=== PATIENT | female | born 1985 | race Caucasian/White ===

== ENCOUNTER 2024-11-14 11:45 | Outpatient (CLI) | payer OTHER, SELFPAY ==
--- NOTE | ~2024-11-14 | MM_ITS ---
EXAMINATION: MM screening shawna BI w cheryl HISTORY: Screening TECHNIQUE: Craniocaudal and mediolateral oblique 3-D tomosynthesis images were obtained and synthetic 2-D images were generated. CAD analysis was submitted and interpreted. COMPARISON: No prior mammogram is available for comparison at this institution. BREAST PARENCHYMAL COMPOSITION: Not dense: There are scattered areas of fibroglandular density. FINDINGS: There is no evidence of suspicious mass, calcification, or architectural distortion to sugg est malignancy in either breast. There has been no suspicious interval change. IMPRESSION: 1. No mammographic evidence of malignancy. 2. Recommend routine screening mammography in one year. BI-RADS Category 1: Negative Reviewed, dictated and finalized at location B.
--- OUTSIDE RECORDS SUMMARY | 2024-11-14 11:51 | XMS_ITS ---
Author Organization [facility] Address [address] [place] [address] Care Team Providers Care Data Management Engineer Name Role Phone AlessioEsperanza Primary Care Provider UnavailMasha Lujan Unavailable [phone] Doug Liao [phone] REASON FOR VISIT SCIT - Traditional Schedule Allergy Immunotherapy (Week ) Medications Medication SIG (Take, Route, Frequency, Duration) Notes Start Date End Date Status Multivitamin Active SIT (Traditional) variable - see record per schedule subcutaneous per schedule for 999 09/02/2024 Active Probiotic Active Vitamin K2 Not-Ramirezin g Fish Oil Active Triamcinolone Acetonide 0.1 % 1 application Externally Twice a day for 30 days Active Auvi-Q 0.3 MG/0.3ML as directed Injectio n once Active Magnesium Glycinate Active ZyrTEC 10 MG 1 tablet Orally Once a day Active Vitamin D3 125 MCG (5000 UT) 1 capsule Orally Once a day for 30 days Active Montelukast Sodium 10 MG 1 tablet Orally Once a day for 30 days Active Famotidine 20 MG 1 tablet Orally Once a day for 30 days Active Nasal Washes N/A as directed intranasally Active Fluticasone Propionate 50 MCG/ACT 2 sprays in each nostril Nasally once a day for 30 days As needed Active Xyzal Allergy 24HR 5 MG 1 tablet in the evening Orally Once a day Active Encounters Encounter Location Date Provider Diagnosis [facility] [address] [place] [address] 11/11/2024 Doug Liao Allergic rhinitis due to pollen J30.1 ; Other allergic rhinitis J30.89 ; Allergic rhinitis due to animal (cat) (dog) hair and dander J30.81 and Other chronic allergic conjunctivitis H10.45 Assessments Encounter Date Diagnosis (ICD Code) Assessment Notes Treatment Notes Treatment Clinical Notes Section Notes 11/11/2024 Allergic rhinitis due to pollen (ICD-10 - J30.1) 11/11/2024 Other allergic rhinitis (ICD-10 - J30.89) 11/11/2024 Allergic rhinitis due to animal (cat) (dog) hair and dander (ICD-10 - J30.81) 11/11/2024 Other chronic allergic conjunctivitis (ICD-10 - H10.45) Plan Of Treatment Next Appt Details Follow Up: As scheduled, Vira son: Provider Name:Doug Brandon Keshawn , 11/18/2024 09:50:00 AM, [address] [place] [address], [phone], Progress Notes * Sowmya WHITTINGTON RDOB:[birth year] (39 yo F)Acc No.[id number]:11/11/2024 SCIT-Aeroallergen Patient: Sowmya SAUCEDO Provider: Mj Liao MD :1985 A ge:39 Y S ex:Female Date:11/11/2024 Address:[address] [place], [place] [id number] Pcp:Esperanza Mccallum Subjective: * Chief Complaints: * S CIT - Traditional Schedule Allergy Immunotherapy (Week ) * HPI: * Introduction: The patient is here for scheduled immunotherapy. Please see the attached specialty form regarding the specifics of the administration of these vaccines. As per our protocol, they must undergo a screening health questionnaire (medication changes, reaction(s) to last immunotherapy dose(s), current health status, ACT (if appropriate), self-injectable epinephrine on patient(?) and peak flow (if appropriate)). Also, the patient must wait in our office for 30 minutes after receiving the vaccine(s). Furthermore, every patient must have an epinephrine pen (self-injectable) with them at the time of administration--and carry if for the following 1.5 hours after they leave our office. The patient must also have taken their antihistamine the day of the injection, preferably 2 hours prior. The consent form for SCIT (subcutaneous immunotherapy) is on file. * Medical History: * Surgical History: * Hospitalization/Major Diagno stic Procedure: * Medications: T akingXyzal Allergy 24HR 5 MG Tablet 1 tablet in the evening Orally Once a day Fluticasone Propionate 50 MCG/ACT Suspension 2 sprays in each nostril Nasally once a day As neededNasal Washes N/A 1 quart of sterilized tap water or distilled water, 1 tsp NaCl, 1 pinch of baking soda as directed intranasally Famotidine 20 MG Tablet 1 tablet Orally Once a day Montelukast Sodium 10 MG Tablet 1 tablet Orally Once a day Triamcinolone Acetonide 0.1 % Ointment 1 application Externally Twice a day Auvi-Q 0.3 MG/0.3ML Solution Auto-injector as directed Injection once Vitamin D3 125 MCG (5000 UT) Capsule 1 capsule Orally Once a day ZyrTEC 10 MG Tablet Chewable 1 tablet Orally Once a day Magnesium Glycinate Fish Oil Probiotic Multivitamin SIT (Traditional) variable - see record variable - see record per schedule subcutaneous per schedule Taking Xyzal Allergy 24HR 5 MG Tablet 1 tablet in the evening Orally Once a day Taking Fluticasone Propionate 50 MCG/ACT Suspension 2 sprays in each nostril Nasally once a day As neededTaking Nasal Washes N/A 1 quart of sterilized tap water or distilled water, 1 tsp NaCl, 1 pinch of baking soda as directed intranasally Taking Famotidine 20 MG Tablet 1 tablet Orally Once a day Taking Montelukast Sodium 10 MG Tablet 1 tablet Orally Once a day Taking Triamcinolone Acetonide 0.1 % Ointment 1 application Externally Twice a day Taking Auvi-Q 0.3 MG/0.3ML Solution Auto-injector as directed Injection once Taking Vitamin D3 125 MCG (5000 UT) Capsule 1 capsule Orally Once a day Taking ZyrTEC 10 MG Tablet Chewable 1 tablet Orally Once a day Taking Magnesium Glycinate Taking Fish Oil Taking Probiotic Taking Multivitamin Taking SIT (Traditional) variable - see record variable - see record per schedule subcutaneous per schedule Not-Taking/PRNVitamin K2 Not-Taking/PRN Vitamin K2 Objective: * Vitals: Assessment: * Assessment: 1. A llergic rhinitis due to pollen - J30.1 (Primary) 2 . O ther allergic rhinitis - J30.89 3 . A llergic rhinitis due to animal (cat) (dog) hair and dander - J30.81 4 . O ther chronic allergic conjunctivitis - H10.45 Plan: * Treatment: * Procedure Codes: 9 5117 IMMUNOTHERAPY INJECTIONS * Preventive Medicine: Counseling: E xercise A void heavy lifting on days of allergy immunotherapy. M edication instruction: I njectable epinephrine education and instruction w/ discussion of signs and symptoms of anaphylaxis and reasons to seek urgent or emergent care, Watch for side effects of prescribed medications. E ducation: A ble to return demonstration of self-injectable epinephrine. * Follow Up: A s scheduled * Billing Information: * Visit Code: * Procedure Codes: 69755 IMMUNOTHERAPY INJECTIONS. * Sign off status: Completed true * Provider: Mj Liao MD Date: 0 11/11/2024 Generated for Dayana hernandez/Albin/Kelseaitting on: 0 11/14/2024 11:51 AM CDT History and Physical Notes * HPI (History of Present Illness) Category Sub-Category Detail Notes Category Not es *Introduction The patient is here for scheduled immunotherapy. Please see the attached specialty form regarding the specifics of the administration of these vaccines. As per our protocol, they must undergo a screening health questionnaire (medication changes, reaction(s) to last immunotherapy dose(s), current health status, ACT (if appropriate), self-injectable epinephrine on patient(?) and peak flow (if appropriate)). Also, the patient must wait in our office for 30 minutes after receiving the vaccine(s). Furthermore, every patient must have an epinephrine pen (self-injectable) with them at the time of administration--and carry if for the following 1.5 hours after they leave our office. The patient must also have taken their antihistamine the day of the injection, preferably 2 hours prior. The consent form for SCIT (subcutaneous immunotherapy) is on file.
--- OUTSIDE RECORDS SUMMARY | 2024-11-14 11:51 | XMS_ITS ---
Author Organization [facility] Address [address] [place] [address] Care Team Providers Care Wreath And Garland Maker Name Role Phone AlessioEsperanza Primary Care Provider UnavailMasha Lujan Unavailable [phone] Doug Liao [phone] REASON FOR VISIT SCIT - Traditional Schedule Allergy Immunotherapy (Week ) Medications Medication SIG (Take, Route, Frequency, Duration) Notes Start Date End Date Status Probiotic Active Vitamin K2 Not-Caleb sanchez SIT (Traditional) variable - see record per schedule subcutaneous per schedule for 999 09/02/2024 Active Multivitamin Active Fish Oil Active Triamcinolone Acetonide 0.1 % 1 application Externally Twice a day for 30 days Active Vitamin D3 125 MCG (5000 UT) 1 capsule Orally Once a day for 30 days Active Auvi-Q 0.3 MG/0.3ML as directed Injectio n once Active Magnesium Glycinate Active ZyrTEC 10 MG 1 tablet Orally Once a day Active Fluticasone Propionate 50 MCG/ACT 2 sprays in each nostril Nasally once a day for 30 days As needed Active Famotidine 20 MG 1 tablet Orally Once a day for 30 days Active Nasal Washes N/A as directed intranasally Active Montelukast Sodium 10 MG 1 tablet Orally Once a day for 30 days Active Xyzal Allergy 24HR 5 MG 1 tablet in the evening Orally Once a day Active Encounters Encounter Location Date Provider Diagnosis [facility] [address] [place] [address] 11/04/2024 Doug Liao Allergic rhinitis due to pollen J30.1 ; Other allergic rhinitis J30.89 ; Allergic rhinitis due to animal (cat) (dog) hair and dander J30.81 and Other chronic allergic conjunctivitis H10.45 Assessments Encounter Date Diagnosis (ICD Code) Assessment Notes Treatment Notes Treatment Clinical Notes Section Notes 11/04/2024 Allergic rhinitis due to pollen (ICD-10 - J30.1) 11/04/2024 Other allergic rhinitis (ICD-10 - J30.89) 11/04/2024 Allergic rhinitis due to animal (cat) (dog) hair and dander (ICD-10 - J30.81) 11/04/2024 Other chronic allergic conjunctivitis (ICD-10 - H10.45) Plan Of Treatment Next Appt Details Follow Up: As scheduled, Vira son: Provider Name:Doug Brandon Keshawn , 11/18/2024 09:50:00 AM, [address] [place] [address], [phone], Progress Notes * Sowmya WHITTINGTON RDOB:[birth year] (39 yo F)Acc No.[id number]:11/04/2024 SCIT-Aeroallergen Patient: Sowmya SAUCEDO Provider: Mj Liao MD :1985 A ge:39 Y S ex:Female Date:11/04/2024 Address:[address] [place], [place] [id number] Pcp:Esperanza Mccallum Subjective: * Chief Complaints: * [...] Information: * Visit Code: * Procedure Codes: 12474 IMMUNOTHERAPY INJECTIONS. * Sign off status: Completed true * Provider: Mj Liao MD Date: 0 11/04/2024 Generated for Dayana hernandez/Albin/Kelseaitting on: 0 11/14/2024 [...]
--- OUTSIDE RECORDS SUMMARY | 2024-11-14 11:51 | XMS_ITS ---
Author Organization [facility] Address [address] [place] [address] Care Team Providers Care Strainer Tender Name Role Phone AlessioEsperanza Primary Care Provider UnavailMasha Lujan Unavailable [phone] Doug Liao [phone] REASON FOR VISIT SCIT - Traditional Schedule Allergy Immunotherapy (Week ) Medications Medication SIG (Take, Route, Frequency, Duration) Notes Start Date End Date Status Fish Oil Active Vitamin K2 Not-Takin g Multivitamin Active Probiotic Active SIT (Traditional) variable - see record per schedule subcutaneous per schedule for 999 09/02/2024 Active Auvi-Q 0.3 MG/0.3ML as directed Injectio n once Active Triamcinolone Acetonide 0.1 % 1 application Externally Twice a day for 30 days Active ZyrTEC 10 MG 1 tablet Orally Once a day Active Vitamin D3 125 MCG (5000 UT) 1 capsule Orally Once a day for 30 days Active Magnesium Glycinate Active Fluticasone Propionate 50 MCG/ACT 2 sprays in each nostril Nasally once a day for 30 days As needed Active Xyzal Allergy 24HR 5 MG 1 tablet in the evening Orally Once a day Active Nasal Washes N/A as directed intranasally Active Montelukast Sodium 10 MG 1 tablet Orally Once a day for 30 days Active Famotidine 20 MG 1 tablet Orally Once a day for 30 days Active Encounters Encounter Location Date Provider Diagnosis [facility] [address] [place] [address] 2024 Doug Liao Allergic rhinitis due to pollen J30.1 ; Other allergic rhinitis J30.89 ; Allergic rhinitis due to animal (cat) (dog) hair and dander J30.81 and Other chronic allergic conjunctivitis H10.45 Assessments Encounter Date Diagnosis (ICD Code) Assessment Notes Treatment Notes Treatment Clinical Notes Section Notes 2024 Allergic rhinitis due to pollen (ICD-10 - J30.1) 2024 Other allergic rhinitis (ICD-10 - J30.89) 2024 Allergic rhinitis due to animal (cat) (dog) hair and dander (ICD-10 - J30.81) 2024 Other chronic allergic conjunctivitis (ICD-10 - H10.45) Plan Of Treatment Next Appt Details Follow Up: As scheduled, Vira son: Provider Name:Doug KendellJennifer Liao , 11/18/2024 09:50:00 AM, [address] [place] [address], [phone], Progress Notes * Sowmya WHITTINGTON RDOB:[birth year] (39 yo F)Acc No.[id number]:2024 SCIT-Aeroallergen Patient: Sowmya SAUCEDO Provider: Mj Liao MD :1985 A ge:39 Y S ex:Female Date:2024 Address:[address] [place], [place] [id number] Pcp:Esperanza Mccallum Subjective: * Chief Complaints: * [...] Information: * Visit Code: * Procedure Codes: 32040 IMMUNOTHERAPY INJECTIONS. * Sign off status: Completed true * Provider: Mj Liao MD Date: 0 2024 Generated for Dayana hernandez/Albin/Kelseaitting on: 0 11/14/2024 11:50 AM CDT History and Physical Notes * [...]
--- OUTSIDE RECORDS SUMMARY | 2024-11-14 11:51 | XMS_ITS | Clinical Summary ---
Author Organization [facility] Address [address] [place] [address] Phone Care Team Providers Care Bench Lay Out Technician Name Role Phone Unavailable Primary Care Provider Unavailabl e Social History Tobacco Use Types Packs/Day Years Used Date Smoking Tobacco: Never Assessed Comments Unknown Sex and Gender Information Value Date Recorded Sex Assigned at Not on file Legal Sex Female 3:56 PM CDT Gender Identity Not on file Sexual Orientation Not on file Plan of Treatment Health Maintenance Due Date Last Done Comments DTAP/TDAP/TD VACCINES (1 - Tdap) 10/29/2003 HEPATITIS B VACCINES (1 of 3 - 19+ 3-dose series) 10/29/2003 HPV/Cotest (21-29) 2005 PAP SMEAR 2005 CERVICAL CANCER SCREENING 2014 HPV/Cotest (30-65) 2014 PAP SMEAR 2014 INFLUENZA VACCINE (#1) 2024 BREAST CANCER SCREENING 2024 HPV VACCINES Aged Out No longer eligi ble based on patient's age to complete this topic
--- OUTSIDE RECORDS SUMMARY | 2024-11-14 11:51 | XMS_ITS | Patient Health Record ---
Author Organization [facility] Address [address] [place] [address] Care Team Providers Care Roll Out Manager Name Role Phone Esperanza Mccallum Primary Care Provider UnavailMasha Lujan Unavailable [phone] Doug Liao Unavailable [phone] Portia Rodriguez Unavailable [phone] Allergies Allergen (clinical drug ingredient) Drug/Non Drug Allergy documented on EMR Reaction Allergy Type Onset Date Status cephalexin Cephalexin (uncoded) Intense Stomach Pain Allergy Active Results Component Value Reference Range Notes RESPIRATORY ALLERGY PROFILE REGION VIII: NACHO, RODOLFO,JEFF Reviewed date:05/28/2024 02:58:15 PM Interpretation:Abnormal Performing Lab:[place], [facility], [address] [place], [address] MaryDee Dee Pruitt MD Notes/Report: NON-FASTING; NON-FASTING; NON-FASTING DERMATOPHAGOIDES PTERONYSSINUS (D1) IGE 0.18 CLASS 0/1 DERMATOPHAGOIDES FARINAE (D2) IGE <0.10 CLASS 0 PENICILLIUM NOTATUM (M1) IGE <0.10 CLASS 0 CLADOSPORIUM HERBARUM (M2) IGE 0.29 CLASS 0/1 ASPERGILLUS FUMIGATUS (M3) IGE <0.10 CLASS 0 ALTERNARIA ALTERNATA (M6) IGE 0.16 CLASS 0/1 COCKROACH (I6) IGE 0.29 CLASS 0/1 MAPLE (BOX ELDER) (T1) IGE 0.25 CLASS 0/1 MOUNTAIN CEDAR (T6) IGE 0.21 CLASS 0/1 WALNUT TREE (T10) IGE <0.10 CLASS 0 SYCAMORE (T11) IGE 0.11 CLASS 0/1 COTTONWOOD (T14) IGE 0.35 CLASS 1 WHITE ROWAN (T15) IGE <0.10 CLASS 0 OAK (T7) IGE 0.14 CLASS 0/1 ELM (T8) IGE 0.23 CLASS 0/1 HICK[place]/PECAN TREE (T22) IGE 0.20 CLASS 0/1 WHITE MULBERRY (T70) IGE <0.10 CLASS 0 BERMUDA GRASS (G2) IGE 0.16 CLASS 0/1 ANGELA GRASS (G6) IGE 0.39 CLASS 1 COMMON RAGWEED (SHORT) (W1) IGE <0.10 CLASS 0 ROUGH PIGWEED (W14) IGE <0.10 CLASS 0 ALGERIAN THISTLE (W11) IGE <0.10 CLASS 0 ROUGH BRAUN ELDER (W16) IGE <0.10 CLASS 0 MOUSE URINE PROTEINS (E72) IGE <0.10 CLASS 0 IMMUNOGLOBULIN E 297 <MO=435 kU/L CAT DANDER (E1) IGE <0.10 CLASS 0 DOG DANDER (E5) IGE <0.10 CLASS 0 IMMUNOGLOBULINS G/A/M Reviewed date:05/27/2024 07:48:30 AM Interpretation:Normal Performing Lab:[facility], [address] [place], [address] Allie Pruitt MD Notes/Report: NON-FASTING; NON-FASTING; NON-FASTING IMMUNOGLOBULIN A 290 47-310 mg/dL IMMUNOGLOBULIN G [phone] mg/dL IMMUNOGLOBULIN M 151 50-300 mg/dL INTERPRETATION Reviewed date:05/27/2024 07:48:23 AM Interpretation:Interpretation Performing Lab:[facility], [address] [place], [address] Allie Pruitt MD Notes/Report: NON-FASTING; NON-FASTING; NON-FASTING INTERPRETATION Specific Level of Allergen IGE Class kU/L Specific IGE Antibody ----- --------- 0 <0.10 Absent/Undetectable 0/1 0.10-0.34 Very Low Level 1 0.35-0.69 Low Level 2 0.70-3.49 Moderate Level 3 3.50-17.4 High Level 4 17.5-49.9 Very High Level 5 50-100 Very High Level 6 >100 Very High Level The clinical relevance of allergen results of 0.10-0.34 kU/L are undetermined and intended for specialist use. Allergens denoted with a include results using one or more analyte specific reagents. In those cases, the test was developed and its analytical performance characteristics have been determined by [facility]. It has not been cleared or approved by the U.S. Food and Drug Administration. This assay has been validated pursuant to the CLIA regulations and is used for clinical purposes. VITAMIN D, 25-OH, TOTAL, IA Reviewed date:05/28/2024 02:55:05 PM Interpretation:Abnormal Performing Lab:[facility], [facility], [address] [place] [address], [address], [place], [address] Magan Allen PhD,[facility] Notes/Report: NON-FASTING; NON-FASTING VITAMIN D, 25-OH, TOTAL 28.9 >29.9 ng/mL This test was developed and its analytical performance characteristics have been determined by [facility]. It has not been cleared or approved by the U.S. Food and Drug Administration. This assay has been validated pursuant to the CLIA regulations and is used for clinical purposes. Vitamin D, 25-Hydroxy reports concentrations of two common forms, 25-OHD2 and 25-OHD3. 25-OHD3 indicates both endogenous production and supplementation. 25-OHD2 is an indicator of exogenous sources, such as diet or supplementation. Therapy is based on measurement of Total 25-OHD, with levels <20 ng/mL indicative of Vitamin D deficiency, while levels between 20 ng/mL and 30 ng/mL suggest insufficiency. Optimal levels are >=30 ng/mL. Vitamin D, 25-Hydroxy reports concentrations of two common forms, 25-OHD2 and 25-OHD3. 25-OHD3 indicates both endogenous production and supplementation. 25-OHD2 is an indicator of exogenous sources, such as diet or supplementation. Therapy is based on measurement of Total 25-OHD, with levels <20 ng/mL indicative of Vitamin D deficiency, while levels between 20 ng/mL and 30 ng/mL suggest insufficiency. Optimal levels are > or = 30 ng/mL. VITAMIN D, 25-OH, D3 28.9 This test was developed and its analytical performance characteristics have been determined by [facility]. It has not been cleared or approved by the FDA. This assay has been validated pursuant to the CLIA regulations and is used for clinical purposes. VITAMIN D, 25-OH, D2 <1.0 This test was developed and its analytical performance characteristics have been determined by [facility]. It has not been cleared or approved by the FDA. This assay has been validated pursuant to the CLIA regulations and is used for clinical purposes. H. INFLUENZAE TYPE B AB Reviewed date:05/27/2024 07:48:09 AM Interpretation:Normal Performing Lab:[facility] [place], [facility],, [address] [place], [address] Olivia Dougherty MD,PhD,MARIA DOLORES Notes/Report: NON-FASTING; NON-FASTING HAEMOPHILUS INFLUENZA TYPE B ANTIBODY (IGG) 1.33 REFERENCE RANGE: > or = 1.00 mcg/mL INTERPRETIVE CRITERIA: <0.15 mcg/mL Nonprotective Antibody Level 0.15 - 0.99 mcg/mL Indeterminate for protective antibody > or = 1.00 mcg/mL Protective Antibody Level IgG antibody to polyribosylribitol phosphate (PRP), the capsular polysaccharide of Haemophilus influenzae type b, is measured in micrograms/mL (mcg/mL), based on correlations with a reference Js radioimmunoprecipitation assay (LAWRENCE). The exact level of antibody needed for protection from infection has not been clarified; values ranging from 0.15 mcg/mL to 1.00 mcg/mL have been reported. A four-fold increase in the PRP IgG antibody level between pre-vaccination and post-vaccination sera is considered evidence of effective immunization. TETANUS ANTITOXOID Reviewed date:05/27/2024 07:48:04 AM Interpretation:Normal Performing Lab:[facility] [place], [facility],, [address] [place], [address] Olivia Dougherty MD,PhD,MARIA DOLORES Notes/Report: NON-FASTING; NON-FASTING TETANUS ANTITOXOID 2.12 REFERENCE RANGE: 0.10 IU/mL or greater Antibody levels > or = 0.10 IU/mL are considered protective. However, tetanus can still occur in some individuals with such antibody levels. These results should not be used to determine the necessity to administer antitoxin when clinically indicated. This test was developed and its analytical performance characteristics have been determined by [facility]. It has not been cleared or approved by FDA. This assay has been validated pursuant to the CLIA regulations and is used for clinical purposes. DIPHTHERIA ANTITOXOID Reviewed date:05/27/2024 07:48:15 AM Interpretation:Normal Performing Lab:MARY, [facility],, [address] [place], [address] Olivia Dougherty MD,PhD,MARIA DOLORES Notes/Report: NON-FASTING; NON-FASTING; NON-FASTING DIPHTHERIA ANTITOXOID 0.65 REFERENCE RANGE: 0.10 IU/mL or greater Interpretive Criteria <0.10 IU/mL Nonprotective Antibody Level > Or = 0.10 IU/mL Protective Antibody Level Antibody levels > or = 0.10 IU/mL are considered protective. After a primary series of three properly spaced diphtheria toxoid doses in adults or four doses in infants, a protective level of antitoxin (defined as > or = 0.10 IU of antitoxin/mL) is reached in more than 95% of immunized persons. This test was developed and its analytical performance characteristics have been determined by [facility]. It has not been cleared or approved by FDA. This assay has been validated pursuant to the CLIA regulations and is used for clinical purposes. S. PNEUMONIAE IGG AB, 23 SER OTYPES, S Reviewed date:05/28/2024 02:54:50 PM Interpretation:Abnormal Performing Lab:MYM, [facility], [address] [place], [place], [address] Desirae Elizabeth M.D. Ph.D. Notes/Report: NON-FASTING; NON-FASTING INTERPRETATION Unable to quantitate serotype 22F (22) due to nonlinear dilution response of patient sample. Overall interpretation of pneumococcal antibody serology panel can be based on the reported 22 serotypes. Evaluation of the immune response following pneumococcal vaccination can be assessed by measuring serotype-specific Streptococcus pneumonia IgG antibodies. Either of the following conditions is consistent with a normal response to Streptococcus pneumonia vaccination: 1. When comparing pre and post-vaccination samples, antibody concentrations increased by at least 2-fold for either >50% of serotypes in children <6 years of age or >70% of serotypes for individuals >6 years of age. 2. In either a pre- or post-vaccination sample, antibody concentrations >=1.0 mcg/mL for either >50% of serotypes for children <6 years of age or >70% of serotypes for individuals >6 years of age. Results >=1.0 mcg/mL or those showing a >=2-fold change are consistent with an immune response, but are not necessarily sufficient to provide protection against infection. ADDITIONAL INFORMATION This test was developed and its performance characteristics determined by [facility] in a manner consistent with CLIA requirements. This test has not been cleared or approved by the U.S. Food and Drug Administration. SEROTYPE 1 (1) 0.7 >=1.0 mcg/mL SEROTYPE 2 (2) 2.3 >=1.0 mcg/mL SEROTYPE 3 (3) 0.8 >=1.0 mcg/mL SEROTYPE 4 (4) 1.1 >=1.0 mcg/mL SEROTYPE 5 (5) 0.5 >=1.0 mcg/mL SEROTYPE 8 (8) 7.9 >=1.0 mcg/mL SEROTYPE 9N (9) 1.4 >=1.0 mcg/mL SEROTYPE 12F (12) 1.0 >=1.0 mcg/mL SEROTYPE 14 (14) 0.4 >=1.0 mcg/mL SEROTYPE 17F (17) 2.5 >=1.0 mcg/mL SEROTYPE 19F (19) 4.1 >=1.0 mcg/mL SEROTYPE 20 (20) 6.1 >=1.0 mcg/mL SEROTYPE 22F (22) >=1.0 mcg/mL No result available due to non-linear dilution response for this serotype. See Interpretation. SEROTYPE 23F (23) 1.7 >=1.0 mcg/mL SEROTYPE 6B (26) 1.8 >=1.0 mcg/mL SEROTYPE 10A (34) 3.6 >=1.0 mcg/mL SEROTYPE 11A (43) 0.8 >=1.0 mcg/mL SEROTYPE 7F (51) 1.7 >=1.0 mcg/mL SEROTYPE 15B (54) 6.2 >=1.0 mcg/mL SEROTYPE 18C (56) 0.4 >=1.0 mcg/mL SEROTYPE 19A (57) 2.7 >=1.0 mcg/mL SEROTYPE 9V (68) 0.7 >=1.0 mcg/mL SEROTYPE 33F (70) 6.3 >=1.0 mcg/mL VITAMIN D, 25-OH, TOTAL, IA Reviewed date:10/13/2024 12:24:30 PM Interpretation:Normal Performing Lab:[facility], [facility] [address] [place] [address], [address], [place], [address] Chapis Cordero Notes/Report: NON-FASTING FASTING:NO FASTING: NO VITAMIN D, 25-OH, TOTAL 45.3 >29.9 ng/mL This test was developed and its analytical performance characteristics have been determined by [facility]. It has not been cleared or approved by the U.S. Food and Drug Administration. This assay has been validated pursuant to the CLIA regulations and is used for clinical purposes. Vitamin D, 25-Hydroxy reports concentrations of two common forms, 25-OHD2 and 25-OHD3. 25-OHD3 indicates both endogenous production and supplementation. 25-OHD2 is an indicator of exogenous sources, such as diet or supplementation. Therapy is based on measurement of Total 25-OHD, with levels <20 ng/mL indicative of Vitamin D deficiency, while levels between 20 ng/mL and 30 ng/mL suggest insufficiency. Optimal levels are >=30 ng/mL. Vitamin D, 25-Hydroxy reports concentrations of two common forms, 25-OHD2 and 25-OHD3. 25-OHD3 indicates both endogenous production and supplementation. 25-OHD2 is an indicator of exogenous sources, such as diet or supplementation. Therapy is based on measurement of Total 25-OHD, with levels <20 ng/mL indicative of Vitamin D deficiency, while levels between 20 ng/mL and 30 ng/mL suggest insufficiency. Optimal levels are > or = 30 ng/mL. VITAMIN D, 25-OH, D3 45.3 This test was developed and its analytical performance characteristics have been determined by [facility]. It has not been cleared or approved by the FDA. This assay has been validated pursuant to the CLIA regulations and is used for clinical purposes. VITAMIN D, 25-OH, D2 <1.0 This test was developed and its analytical performance characteristics have been determined by [facility]. It has not been cleared or approved by the FDA. This assay has been validated pursuant to the CLIA regulations and is used for clinical purposes. STREPTOCOCCUS PNEUMONIAE AB (IGG) (23 SEROTYPES) Reviewed date:10/20/2024 03:20:41 PM Interpretation:Normal Performing Lab:MARY, [facility],, [address] [place], [address] Olivia Dougherty MD,PhD,MARIA DOLORES Notes/Report: NON-FASTING FASTING:YES FASTING: YES SEROTYPE 1 (1) >111.0 SEROTYPE 2 (2) 46.3 SEROTYPE 3 (3) 5.0 SEROTYPE 4 (4) 0.4 SEROTYPE 5 (5) 28.7 SEROTYPE 8 (8) 18.2 SEROTYPE 9 (9N) >41.0 SEROTYPE 12 (12F) 18.7 SEROTYPE 14 (14) 2.2 SEROTYPE 17 (17F) 43.8 SEROTYPE 19 (19F) 1.7 SEROTYPE 20 (20) 12.7 SEROTYPE 22 (22F) 5.6 SEROTYPE 23 (23F) 35.2 SEROTYPE 26 (6B) 39.7 SEROTYPE 34 (10A) >77.0 SEROTYPE 43 (11A) 6.0 SEROTYPE 51 (7F) 5.2 SEROTYPE 54 (15B) 22.1 SEROTYPE 56 (18C) 10.6 SEROTYPE 57 (19A) 10.6 SEROTYPE 68 (9V) 29.5 SEROTYPE 70 (33F) 3.1 Serologic correlates of protection against pneumococcal disease have not been rigorously established for all patient populations. Published data and expert consensus (including WHO) suggest protection from invasive disease usually occurs at levels >or =0.3-0.50 mcg/mL for healthy children receiving pneumococcal conjugate vaccines. Higher titers may be necessary to protect from non-invasive infection (e.g., pneumonia, otitis, sinusitis). Expert opinion suggests that a cut-off of >= 1.3 mcg/mL may be a more relevant value to assess antibody responses after pneumococcal polysaccharide vaccines or for immunocompromised patients. In addition to antibody quantity, protection also depends on antibody avidity and opsonophagocytic activity. Some experts consider that post-vaccination (4-6 weeks) IgG seroconversion and/or 2- to 4-fold rise in IgG titers for >50% to 70% of vaccine serotypes demonstrates a normal post-vaccine serologic response. Persons with high initial serotype-specific titers may have less robust responses. [facility] uses a multi-analyte immunodetection (MAID) method. The method employs the [employer] flow cytometric system which measures multiple analytes simultaneously. The FDA standard reference serum 89-S is used as the calibration standard. Results are reported in mcg/mL. This assay detects all of the 23 of the serotypes in the 23-valent polysaccharide vaccine and 12 of the 13 serotypes in the 13-valent conjugate vaccine. This test was developed and its analytical performance characteristics have been determined by [facility]. It has not been cleared or approved by FDA. This assay has been validated pursuant to the CLIA regulations and used for clinical purposes. For additional information, please refer to http://education.Beststudys.c om/faq/BKN163 (This link is being provided for informational/ educational purposes only.) Reason For Referral No Information Medications Medication SIG (Take, Route, Frequency, Duration) Notes Start Date End Date Status Triamcinolone Acetonide 0.1 % 1 application Externally Twice a day for 30 days Active Montelukast Sodium 10 MG 1 tablet Orally Once a day for 30 days Active Auvi-Q 0.3 MG/0.3ML as directed Injectio n once Active Multivitamin Active Magnesium Glycinate Active ZyrTEC 10 MG 1 tablet Orally Once a day Active Vitamin D3 125 MCG (5000 UT) 1 capsule Orally Once a day for 30 days Active SIT (Traditional) variable - see record per schedule subcutaneous per schedule for 999 09/02/2024 Active Famotidine 20 MG 1 tablet Orally Once a day for 30 days Active Probiotic Active Nasal Washes N/A as directed intranasally Active Fluticasone Propionate 50 MCG/ACT 2 sprays in each nostril Nasally once a day for 30 days As needed Active Vitamin K2 Not-Caleb sanchez Xyzal Allergy 24HR 5 MG 1 tablet in the evening Orally Once a day Active Fish Oil Active Immunizations Vaccine Route Administration Date Status Comme nts Influenza Unknown 06/16/2022 Administered Portal Infor Levlrion NOC Tdap Unknown 11/24/2015 Administered Portal Infor Levlrion Pneumovax 23 IM Intramuscular 07/15/2024 Administered Social History Tobacco Use: Social History Observation Description Date Details (start date - stop date) Never Smoker NA - NA Tobacco Control (Standard) Question Answer Notes Tobacco use: Nonsmoker Problems Problem Type SNOMED Code ICD Code Onset Dates Problem Status W/U Status Risk Notes Problem Chronic allergic conjunctivitis (35999436) Other chronic allergic conjunctivitis (H10.45) Active confirmed Problem Allergic rhinitis caused by pollen (disorder) (16561707) Allergic rhinitis due to pollen (J30.1) Active confirmed Problem Allergic rhinitis (72603182) Other allergic rhinitis (J30.89) Active confirmed Problem Chronic rhinitis (51208513) Chronic rhinitis (J31.0) Active confirmed Problem Chronic sinusitis (44220204) Chronic sinusitis, unspecified (J32.9) Active confirmed Problem Hypertrophy of nasal turbinates (26914325) Hypertrophy of nasal turbinates (J34.3) Active confirmed Problem Allergic rhinitis caused by animal hair and dander (830287237221748) Allergic rhinitis due to animal (cat) (dog) hair and dander (J30.81) Active confirmed Problem Chronic sinusitis (32497583) Other chronic sinusitis (J32.8) Active confirmed Problem Vitamin D deficiency (64442604) Vitamin D deficiency, unspecified (E55.9) Active confirmed Vital Signs Respiratory Rate 18 /min 09/02/2024 Oximetry 100 % 09/02/2024 Blood pressure diastolic 74 mm Hg 09/02/2024 Height 67.5 in 09/02/2024 Blood pressure systolic 107 mm Hg 09/02/2024 Weight 176.2 lbs 09/02/2024 BMI 27.19 kg/m2 09/02/2024 Encounters Encounter Location Date Provider Diagnosis [place] [phone] 05/19/2024 Masha Young Hypertrophy of nasal turbinates J34.3 ; Chronic rhinitis J31.0 and Acute serous otitis media, recurrent, bilateral H65.06 [place] [id number] 07/01/2024 Portia Rodriguez Allergic rhinitis du e to pollen J30.1 ; Allergic rhinitis due to animal (cat) (dog) hair and dander J30.81 ; Other allergic rhinitis J30.89 ; Other chronic allergic conjunctivitis H10.45 ; Acute serous otitis media, recurrent, bilateral H65.06 and Vitamin D deficiency, unspecified E55.9 [facility] [place] [address] [place] [address] 07/15/2024 Doug Liao Encounter for immunization Z23 ; Encounter for antibody response examination Z01.84 and Other chronic sinusitis J32.8 [facility] [place] [address] [place] [address] 07/17/2024 Doug Liao Allergic rhinitis du e to pollen J30.1 ; Allergic rhinitis due to animal (cat) (dog) hair and dander J30.81 ; Other allergic rhinitis J30.89 and Other chronic allergic conjunctivitis H10.45 [facility] [place] [address] [place] [address] 07/31/2024 Doug Liao Allergic rhinitis du e to pollen J30.1 ; Allergic rhinitis due to animal (cat) (dog) hair and dander J30.81 ; Other allergic rhinitis J30.89 and Other chronic allergic conjunctivitis H10.45 [facility] [place] [address] [place] [address] 08/05/2024 Doug Liao Allergic rhinitis du e to pollen J30.1 ; Allergic rhinitis due to animal (cat) (dog) hair and dander J30.81 ; Other allergic rhinitis J30.89 and Other chronic allergic conjunctivitis H10.45 [facility] [place] [address] [place] [address] 08/12/2024 Doug Liao Allergic rhinitis du e to pollen J30.1 ; Allergic rhinitis due to animal (cat) (dog) hair and dander J30.81 ; Other allergic rhinitis J30.89 and Other chronic allergic conjunctivitis H10.45 [facility] [place] [address] [place] [address] 08/19/2024 Doug Liao Allergic rhinitis du e to pollen J30.1 ; Allergic rhinitis due to animal (cat) (dog) hair and dander J30.81 ; Other allergic rhinitis J30.89 and Other chronic allergic conjunctivitis H10.45 [facility] [place] [address] [facility] [place] [address] 08/26/2024 Portia Rodriguez Allergic rhinitis du e to pollen J30.1 ; Allergic rhinitis due to animal (cat) (dog) hair and dander J30.81 ; Other allergic rhinitis J30.89 ; Other chronic allergic conjunctivitis H10.45 ; Acute serous otitis media, recurrent, bilateral H65.06 and Vitamin D deficiency, unspecified E55.9 [facility] [place] [address] [facility] [place] [address] 09/02/2024 Masha Yakov Allergic rhinitis du e to pollen J30.1 ; Allergic rhinitis due to animal (cat) (dog) hair and dander J30.81 ; Other allergic rhinitis J30.89 ; Other chronic allergic conjunctivitis H10.45 ; Acute serous otitis media, recurrent, bilateral H65.06 and Vitamin D deficiency, unspecified E55.9 [facility] [place] [address] [facility] [place] [address] 09/09/2024 Doug Liao Allergic rhinitis du e to pollen J30.1 ; Other allergic rhinitis J30.89 ; Allergic rhinitis due to animal (cat) (dog) hair and dander J30.81 and Other chronic allergic conjunctivitis H10.45 [facility] [place] [address] [facility] [place] [address] 09/16/2024 Doug Liao Allergic rhinitis du e to pollen J30.1 ; Other allergic rhinitis J30.89 ; Allergic rhinitis due to animal (cat) (dog) hair and dander J30.81 and Other chronic allergic conjunctivitis H10.45 [facility] [place] [address] [facility] [place] [address] 09/23/2024 Doug Liao Allergic rhinitis du e to pollen J30.1 ; Other allergic rhinitis J30.89 ; Allergic rhinitis due to animal (cat) (dog) hair and dander J30.81 and Other chronic allergic conjunctivitis H10.45 [facility] [place] [address] [facility] [place] [address] 09/30/2024 Doug Liao Allergic rhinitis du e to pollen J30.1 ; Other allergic rhinitis J30.89 ; Allergic rhinitis due to animal (cat) (dog) hair and dander J30.81 and Other chronic allergic conjunctivitis H10.45 [facility] [place] [address] [place] [address] 10/07/2024 Doug Liao Allergic rhinitis du e to pollen J30.1 ; Other allergic rhinitis J30.89 ; Allergic rhinitis due to animal (cat) (dog) hair and dander J30.81 and Other chronic allergic conjunctivitis H10.45 [facility] [place] [address] [place] [address] 10/14/2024 Doug Liao Allergic rhinitis du e to pollen J30.1 ; Other allergic rhinitis J30.89 ; Allergic rhinitis due to animal (cat) (dog) hair and dander J30.81 and Other chronic allergic conjunctivitis H10.45 [facility] [place] [address] [place] [address] 10/21/2024 Doug Liao Allergic rhinitis du e to pollen J30.1 ; Other allergic rhinitis J30.89 ; Allergic rhinitis due to animal (cat) (dog) hair and dander J30.81 and Other chronic allergic conjunctivitis H10.45 [facility] [place] [address] [place] [address] 2024 Doug Liao Allergic rhinitis du e to pollen J30.1 ; Other allergic rhinitis J30.89 ; Allergic rhinitis due to animal (cat) (dog) hair and dander J30.81 and Other chronic allergic conjunctivitis H10.45 [facility] [place] [address] [place] [address] 11/04/2024 Doug Liao Allergic rhinitis du e to pollen J30.1 ; Other allergic rhinitis J30.89 ; Allergic rhinitis due to animal (cat) (dog) hair and dander J30.81 and Other chronic allergic conjunctivitis H10.45 [facility] [place] [address] [place] [address] 11/11/2024 Doug Liao Allergic rhinitis du e to pollen J30.1 ; Other allergic rhinitis J30.89 ; Allergic rhinitis due to animal (cat) (dog) hair and dander J30.81 and Other chronic allergic conjunctivitis H10.45 [facility] - [place] [address] [place] [address] 06/27/2024 Masha Nagy [facility] - [place] [address] [place] [address] 07/01/[address] [facility] - [place] [address] [place] [address] 07/04/[address] [facility] - [place] [address] [place] [address] 07/08/[address] [facility] - [place] [address] [place] [address] 03/14/[address] [facility] - [place] [address] [facility] [place] [address] 03/14/[address] [facility] - [place] [address] [facility] [place] [address] 06/10/[address] [facility] - [place] [address] [facility] [place] [address] 08/27/[address] [facility] - [place] [address] [facility] 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 Likely due to meds -Will check ImmunoCaps and return for selective IDs off meds x 10-14 days -Can restart Xyzal and Flonase 07/01/2024 Allergic rhinitis due to pollen (ICD-10 - J30.1) Given the history and symptoms, skin testing was performed to common aeroallergens to determine atopic status. Jody clearly suffers from atopic disease based upon our skin testing and clinical history. Accordingly, we have introduced a new, aggressive medication regimen, discussed nasal washes and allergy-specific avoidance measures. We also discussed adjunctive therapies including subcutaneous, specific allergen immunotherapy as relates to the treatment and prevention of atopic disease. She is currently considering the risks, benefits and alternatives to this care. Risks: bleeding, infection, allergic reaction, anaphylaxis; Benefits: reduced need for medications, improved symptoms, disease modification. Alternatives: watch/wait, change medication regimen, improve allergy avoidance measures. - ImmunoCaps from 04/2024 showed elevations to dust mites, mold, cockroach, trees, grass. Total IgE 297. - Continue medications as listed above. - Patient is considernig SCIT - recommending premedication with Zyrtec. - Will need AIE ordered and proper demonstration given if pursuing SCIT - Follow-up for Cluster 1 or 3 months for E&M 07/01/2024 Allergic rhinitis due to animal (cat) (dog) hair and dander (ICD-10 - J30.81) Follow allergen avoidance, meds and consider SCIT as an adjunctive treatment to current regimen. 07/15/2024 Encounter for antibody response examination (ICD-10 - Z01.84) 07/17/2024 Allergic rhinitis due to pollen (ICD-10 - J30.1) 07/15/2024 Encounter for immunization (ICD-10 - Z23) 07/31/2024 Allergic rhinitis due to pollen (ICD-10 - J30.1) 08/05/2024 Allergic rhinitis due to pollen (ICD-10 - J30.1) 08/12/2024 Allergic rhinitis due to pollen (ICD-10 - J30.1) 08/19/2024 Allergic rhinitis due to pollen (ICD-10 - J30.1) 08/26/2024 Allergic rhinitis due to pollen (ICD-10 - J30.1) Sowmya clearly suffers from atopic disease based upon our skin testing and history. Accordingly, we have encouraged his medication regimen, discussed nasal washes and allergy-specific avoidance measures. We also discussed adjunctive therapies including subcutaneous, specific allergen immunotherapy as relates to the treatment and prevention of atopic disease. After considering the risks, benefits and alternatives to this care, we continued treatment today. Risks: bleeding, infection, allergic reaction, anaphylaxis; Benefits: reduced need for medications, improved symptoms, disease modification. Alternatives: watch/wait, change medication regimen, improve allergy avoidance measures. Today, reporting bilateral LLR after Cluster 5 dosing. Patient was given additional Pepcid and Singulair. - The procedure was tolerated without large local or systemic symptoms concerning for anaphylaxis. - ImmunoCaps from 04/2024 showed elevations to dust mites, mold, cockroach, trees, grass. Total IgE 297. - Continue medications as listed above. Will plan to premedicate with Zyrtec, Pepcid and Singulair. Orders sent out. - ENcouraged to take pictures and notify office of further LLR. Encouraged ice, TAC and additional antihsitamines. Order for TAC sent out. - AIE on hand. Patient was instructed that epinephrine needs to be carried to each immunotherapy visit and should be carried 2 hrs after dosing. - Follow-up in 1 week for dosing and 6 months for E&M 08/26/2024 Allergic rhinitis due to animal (cat) (dog) hair and dander (ICD-10 - J30.81) Follow allergen avoidance, meds and continue SCIT as an adjunctive treatment to current regimen. 09/02/2024 Allergic rhinitis due to pollen (ICD-10 - J30.1) Sowmya clearly suffers from atopic disease based upon our skin testing and history. Accordingly, we have encouraged his medication regimen, discussed nasal washes and allergy-specific avoidance measures. We also discussed adjunctive therapies including subcutaneous, specific allergen immunotherapy as relates to the treatment and prevention of atopic disease. After considering the risks, benefits and alternatives to this care, we continued treatment today. Risks: bleeding, infection, allergic reaction, anaphylaxis; Benefits: reduced need for medications, improved symptoms, disease modification. Alternatives: watch/wait, change medication regimen, improve allergy avoidance measures. Today, reporting bilateral LLR after Cluster 5 and 6 dosing. Triple pre-medication added last visit - Mutually agreed to change to traditonal dosing, continue triple pre-med. Use TAC PRN. - ImmunoCaps from 04/2024 showed elevations to dust mites, mold, cockroach, trees, grass. Total IgE 297. - The procedure was tolerated without large local or systemic symptoms concerning for anaphylaxis. - Continue medications as listed above. Will plan to premedicate with Zyrtec, Pepcid and Singulair. Orders sent out. - Encouraged to take pictures and notify office of further LLR. - AIE on hand. Patient was instructed that epinephrine needs to be carried to each immunotherapy visit and should be carried 2 hrs after dosing. - Follow-up in 1 week for dosing and 3-6 months for E&M 09/02/2024 Allergic rhinitis due to animal (cat) (dog) hair and dander (ICD-10 - J30.81) Follow allergen avoidance, meds and continue SCIT as an adjunctive treatment to current regimen. 09/09/2024 Allergic rhinitis due to pollen (ICD-10 - J30.1) 09/09/2024 Other allergic rhinitis (ICD-10 - J30.89) 09/16/2024 Allergic rhinitis due to pollen (ICD-10 - J30.1) 09/16/2024 Other allergic rhinitis (ICD-10 - J30.89) 09/23/2024 Allergic rhinitis due to pollen (ICD-10 - J30.1) 09/23/2024 Other allergic rhinitis (ICD-10 - J30.89) 09/30/2024 Allergic rhinitis due to pollen (ICD-10 - J30.1) 09/30/2024 Other allergic rhinitis (ICD-10 - J30.89) 10/07/2024 Allergic rhinitis due to pollen (ICD-10 - J30.1) 10/07/2024 Other allergic rhinitis (ICD-10 - J30.89) 10/14/2024 Allergic rhinitis due to pollen (ICD-10 - J30.1) 10/14/2024 Other allergic rhinitis (ICD-10 - J30.89) 10/21/2024 Allergic rhinitis due to pollen (ICD-10 - J30.1) 10/21/2024 Other allergic rhinitis (ICD-10 - J30.89) 2024 Allergic rhinitis due to pollen (ICD-10 - J30.1) 2024 Other allergic rhinitis (ICD-10 - J30.89) 11/04/2024 Allergic rhinitis due to pollen (ICD-10 - J30.1) 11/04/2024 Other allergic rhinitis (ICD-10 - J30.89) 11/11/2024 Allergic rhinitis due to pollen (ICD-10 - J30.1) 11/11/2024 Other allergic rhinitis (ICD-10 - J30.89) 11/11/2024 Allergic rhinitis due to animal (cat) (dog) hair and dander (ICD-10 - J30.81) 11/04/2024 Allergic rhinitis due to animal (cat) (dog) hair and dander (ICD-10 - J30.81) 2024 Allergic rhinitis due to animal (cat) (dog) hair and dander (ICD-10 - J30.81) 10/21/2024 Allergic rhinitis due to animal (cat) (dog) hair and dander (ICD-10 - J30.81) 10/14/2024 Allergic rhinitis due to animal (cat) (dog) hair and dander (ICD-10 - J30.81) 10/07/2024 Allergic rhinitis due to animal (cat) (dog) hair and dander (ICD-10 - J30.81) 09/30/2024 Allergic rhinitis due to animal (cat) (dog) hair and dander (ICD-10 - J30.81) 09/23/2024 Allergic rhinitis due to animal (cat) (dog) hair and dander (ICD-10 - J30.81) 09/16/2024 Allergic rhinitis due to animal (cat) (dog) hair and dander (ICD-10 - J30.81) 09/09/2024 Allergic rhinitis due to animal (cat) (dog) hair and dander (ICD-10 - J30.81) 09/02/2024 Other allergic rhinitis (ICD-10 - J30.89) Follow allergen avoidance, meds and continue SCIT as an adjunctive treatment to current regimen. 08/26/2024 Other allergic rhinitis (ICD-10 - J30.89) Follow allergen avoidance, meds and continue SCIT as an adjunctive treatment to current regimen. 08/19/2024 Allergic rhinitis due to animal (cat) (dog) hair and dander (ICD-10 - J30.81) 08/12/2024 Allergic rhinitis due to animal (cat) (dog) hair and dander (ICD-10 - J30.81) 08/05/2024 Allergic rhinitis due to animal (cat) (dog) hair and dander (ICD-10 - J30.81) 07/31/2024 Allergic rhinitis due to animal (cat) (dog) hair and dander (ICD-10 - J30.81) 07/15/2024 Other chronic sinusitis (ICD-10 - J32.8) 05/19/2024 Acute serous otitis media, recurrent, bilateral (ICD-10 - H65.06) Given frequency of infection recommend checking labs to evaluate her immune system. She also had PNA this year -return for lab review and vaccines if needed 07/17/2024 Allergic rhinitis due to animal (cat) (dog) hair and dander (ICD-10 - J30.81) 07/01/2024 Other allergic rhinitis (ICD-10 - J30.89) Follow allergen avoidance, meds and consider SCIT as an adjunctive treatment to current regimen. 07/01/2024 Other chronic allergic conjunctivitis (ICD-10 - H10.45) Given ocular signs and symptoms I encouraged allergy avoidance measures and meds as above. If symptoms persist, consider adding additional medications including intraocular antihistamine/mast cell stabilizer, PRN and consider SCIT as an adjunctive measure. 07/17/2024 Other allergic rhinitis (ICD-10 - J30.89) 07/31/2024 Other allergic rhinitis (ICD-10 - J30.89) 08/05/2024 Other allergic rhinitis (ICD-10 - J30.89) 08/12/2024 Other allergic rhinitis (ICD-10 - J30.89) 08/26/2024 Other chronic allergic conjunctivitis (ICD-10 - H10.45) Given ocular signs and symptoms I encouraged allergy avoidance measures and meds as above. If symptoms persist, consider adding additional medications including intraocular antihistamine/mast cell stabilizer, PRN and continue SCIT as an adjunctive measure. 09/02/2024 Other chronic allergic conjunctivitis (ICD-10 - H10.45) Given ocular signs and symptoms I encouraged allergy avoidance measures and meds as above. If symptoms persist, consider adding additional medications including intraocular antihistamine/mast cell stabilizer, PRN and continue SCIT as an adjunctive measure. 08/19/2024 Other allergic rhinitis (ICD-10 - J30.89) 09/09/2024 Other chronic allergic conjunctivitis (ICD-10 - H10.45) 09/16/2024 Other chronic allergic conjunctivitis (ICD-10 - H10.45) 09/23/2024 Other chronic allergic conjunctivitis (ICD-10 - H10.45) 09/30/2024 Other chronic allergic conjunctivitis (ICD-10 - H10.45) 10/07/2024 Other chronic allergic conjunctivitis (ICD-10 - H10.45) 10/14/2024 Other chronic allergic conjunctivitis (ICD-10 - H10.45) 10/21/2024 Other chronic allergic conjunctivitis (ICD-10 - H10.45) 2024 Other chronic allergic conjunctivitis (ICD-10 - H10.45) 11/04/2024 Other chronic allergic conjunctivitis (ICD-10 - H10.45) 11/11/2024 Other chronic allergic conjunctivitis (ICD-10 - H10.45) 09/02/2024 Acute serous otitis media, recurrent, bilateral (ICD-10 - H65.06) Given frequency of infection recommend checking labs to evaluate her immune system. She also had PNA this year. PIDD workup revealed low vitamin D (28.9) and inadequate s. pneumo protection (). - [id number] received on 07/15/24, has yet to have repeat titers. Will obtain with Vitamin D recheck. Lab ordered and printed order given to patient. Slated for recheck in 09/2024 - Treat Vitamin D deficiency - see below. 08/26/2024 Acute serous otitis media, recurrent, bilateral (ICD-10 - H65.06) Given frequency of infection recommend checking labs to evaluate her immune system. She also had PNA this year. PIDD workup revealed low vitamin D (28.9) and inadequate s. pneumo protection (). - [id number] received on 07/15/24, has yet to have repeat titers. Will obtain with Vitamin D recheck. Lab ordered and printed order given to patient. - Treat Vitamin D deficiency - see below. 08/19/2024 Other chronic allergic conjunctivitis (ICD-10 - H10.45) 08/05/2024 Other chronic allergic conjunctivitis (ICD-10 - H10.45) 08/12/2024 Other chronic allergic conjunctivitis (ICD-10 - H10.45) 07/17/2024 Other chronic allergic conjunctivitis (ICD-10 - H10.45) 07/31/2024 Other chronic allergic conjunctivitis (ICD-10 - H10.45) 07/01/2024 Acute serous otitis media, recurrent, bilateral (ICD-10 - H65.06) Given frequency of infection recommend checking labs to evaluate her immune system. She also had PNA this year. PIDD workup revealed low vitamin D (28.9) and inadequate s. pneumo protection (). - Recommending [id number] with repeat titers in 4-6 weeks. - Treat Vitamin D deficiency - see below. 07/01/2024 Vitamin D deficiency, unspecified (ICD-10 - E55.9) Modified PIDD workup revealed vitamin D level was 28.9. She is currently taking 1,000IU supplementation daily. Plan to start 50,000 IU of vitamin D/ week for 8 weeks, followed by 5,000 IU/day for 4 weeks. Discussed taking vitamin D with a fatty meal. Will recheck level in 12 weeks. 08/26/2024 Vitamin D deficiency, unspecified (ICD-10 - E55.9) Modified PIDD workup revealed vitamin D level was 28.9. She completed 50,000 IU of vitamin D/ week for 8 weeks. Will start 5,000 IU/day for 4 weeks. Discussed taking vitamin D with a fatty meal. Will recheck level in 4 weeks. Lab ordered and given to patient. 09/02/2024 Vitamin D deficiency, unspecified (ICD-10 - E55.9) Modified PIDD workup revealed vitamin D level was 28.9. She completed 50,000 IU of vitamin D/ week for 8 weeks. Will start 5,000 IU/day for 4 weeks. Discussed taking vitamin D with a fatty meal. Will recheck level in 4 weeks. Lab ordered and given to patient. 05/19/2024 Other 07/01/2024 Other 07/31/2024 Other 08/05/2024 Other 08/12/2024 Other 08/19/2024 Other 08/26/2024 Other 09/02/2024 Other Plan Of Treatment Pending Test Test Name Order Date STREPTOCOCCUS PNEUMONIAE IGG AB (23 SERO TYPES) 08/26/2024 TETANUS ANTITOXOID ANTIBODY (EIA) 2023 DIPHTHERIA ANTITOXOID ANTIBODY HAEMOPHILUS INFLUENZAE B ANTIBODY, IGG 1 Next Appt Details Provider Name:Doug RdzJennifer Liao , 11/18/2024 09:50:00 AM, [address] [place], [address], Insurance Providers Payer Name Payer Address Payer Phone Subscriber Number Group Number Insured Name Patient Relationship to Insured Coverage Start Date Coverage End Date [employer] Choice POS II [id number] [place] [phone] [id number] Manuel Hadley Spouse - patient is the spouse of the insured 4
--- OUTSIDE RECORDS SUMMARY | 2024-11-14 11:51 | XMS_ITS | Clinical Summary ---
Author Organization [facility] Address [address] [place] [address] Care Team Providers Care Data Integrity Consultant Name Role Phone Laura Felder MD Primary Care Provider [phone] Source Comments [facility],non-owned Affiliates and Associated Physician Practices is amultiple site organization consisting of ambulatory clinics and hospital sitesin [place], [place], [place] and [place]. This disclosure is being madepursuant to the Care Everywhere program and may not contain all information available regarding this patient. Last updated 18.[facility] Allergies Active Allergy Reactions Criticality Noted Date Comments Cephalexin Urticaria 03/11/2014 Medications * Be aware that medications may not be up to date on this document. Alwaysverify current medications with the patient. vitamin-ferrous fumarate-folic acid (NATALCARE PLUS) 27-1 MG tablet Take 1 tablet by mouth once daily. Active iron polysaccharides (NIFEREX 150) 150 MG capsule Take 1 capsule by mouth 2 times daily after meals. 60 capsule 1 4 Active ibuprofen (MOTRIN) 600 MG tablet Take 1 tablet by mouth every 6 hours as needed for Pain. 60 tablet 1 4 Active docusate sodium (COLACE) 100 MG capsule Take 1 capsule by mouth 2 times daily. 60 capsule 1 4 Active norethindrone (NOR-QD) 0.35 MG tablet Take 1 tablet by mouth once daily. 2 packet 2 4 Active Vitamins (DIS) TABS Take 1 tablet by mouth once daily. 30 tablet 11 4 Active Active Problems Problem Noted Date Diagnosed Date Supervision of other high-risk 014 Overview (06/06/2015): Dating: L/undoc 1st tri A+/I/-/-, HIV NR Passed GTT per pt GBS pend 03/11/2014 premature rupture of membranes (PPROM) delivered, current hospitalization 03/11/2014 Overview (03/11/2014): On 03/11/2014 at 0100 Polyhydramnios 03/11/2014 Overview (03/11/2014): S/p evaluation at [facility] with possible hydronephrosis? Will request records. Family History Medical History Relation Name Comments Arthritis Father Diabetes Maternal Grandfather Stroke Maternal Grandfather Diabetes Maternal Grandmother Arthritis Paternal Grandfather Hypertension Paternal Grandfather Relation Name Status Comments Father Maternal Grandfather Maternal Grandmother Paternal Grandfather Social History Tobacco Use Types Packs/Day Years Used Date Smoking Tobacco: Never Alcohol Use Standard Drinks/Week Comments No 0 (1 standard drink = 0.6 oz pur e alcohol) Comments No Sex and Gender Information Value Date Recorded Sex Assigned at Not on file Legal Sex Female 5:21 AM CDT Gender Identity Not on file Sexual Orientation Not on file Last Filed Vital Signs Vital Sign Reading Time Taken Comments Blood Pressure 119/72 03/14/2014 8:00 AM CDT Pulse 60 03/14/2014 8:00 AM CDT Temperature 36.8 C (98.2 F) 03/14/2014 8:00 AM CDT Respiratory Rate 18 03/14/2014 8:00 AM CDT Oxygen Saturation 100% 03/12/2014 12:48 PM CDT Inhaled Oxygen Concentration - - Weight 87.1 kg (192 lb) 03/11/2014 5:49 AM CDT Height 170.2 cm (5' 7 ) 03/11/2014 5:49 AM CDT Body Mass Index 30.07 03/11/2014 5:49 AM CDT Plan of Treatment Health Maintenance Due Date Last Done Comments LIPID TESTING 1984 MAMMOGRAM 1984 HIV SCREENING 10/29/1999 HEPATITIS C SCREENING 10/24/2002 DTAP/TDAP/TD VACCINES (1 - Tdap) 10/29/2003 HEPATITIS B VACCINE (1 of 3 - 19+ 3-dose series) 10/29/2003 COVID-19 VACCINE (1 2023-2 5 season) 2024 DEPRESSION SCREENING 07/30/2024 INFLUENZA VACCINE (Season Ended) 2025 ZOSTER VACCINE (1 of 2) 2034 HIB VACCINE Aged Out No longer eligi ble based on patient's age to complete this topic HPV VACCINE Aged Out No longer eligi ble based on patient's age to complete this topic MENINGOCOCCAL (Group B) VACC INE SHARED DECISION-MAKING Aged Out No longer eligibl e based on patient's age to complete this topic MENINGOCOCCAL GROUPS A/C/Y/W VACCINE Aged Out No longer eligible b ased on patient's age to complete this topic PNEUMOCOCCAL VACCINE Aged Out No long er eligible based on patient's age to complete this topic Insurance [facility] Address: [address] Advance Directives * Full Code (Latest Code Status on File) Date Activated Date Inactivated Comments 03/12/2014 10:55 AM 03/14/2014 2:41 PM * Full Code Date Activated Date Inactivated Comments 03/11/2014 5:50 AM 03/12/2014 10:55 AM Care Teams Data Integrity Consultant Relationship Specialty Start Date End Date Laura Felder MD [address] [address] PCP - General Obstetrics and Gynecology 03/11/14
--- OUTSIDE RECORDS SUMMARY | 2024-11-14 11:51 | XMS_ITS | Continuity of Care Document ---
Author Organization [facility] Address [address] [place] [address] Phone Care Team Providers Care Medical Records Library Professor Name Role Phone Unavailable Unavailable Unavailable Advance Directives Directive Yes / No Effective Date File Name No Information Encounters Encounter Description Practice Location Reason(s) For Visit Diagnoses Date Provider Providers Copied on Encounter [facility], [address] [facility], [place], [place], [id number], [place] tel:[phone] [facility] No Information No Information Referring Provider: AARTI Longoria, [address], [place], [address]. tel:[phone] Family History Family Member Type Diagnosis Age At Onset No Information Payers Payer name Insurance type Covered democrat ID Authoriza tion(s) No Information Social History Type Description Quantity Date Captured Comments Sex Female Smoking Status No Information Chief Complaint And Reason For Visit No Information History Of Present Illness Encounter Date Complaint History Of Prese nt Illness No Information Instructions Date Instruction Additional Infor mation No Information Assessments Type Assessment Date No Information
== END 2024-11-14 11:46 | disposition home or self-care (01) ==
LOC: CHSIMG 11:48
PROVIDERS: PCP Physician Assistant; Visit Provider Nurse Practitioner Women's Health
DX: Z12.31 Encounter for screening mammogram for malignant neoplasm of breast (principal)
CPT/HCPCS: 77063; 77067